=== PATIENT | female | born 1975 | race Native Hawaiian/Other Pacific Islander ===

== ENCOUNTER 2016-10-16 15:03 | Outpatient (CLI) | payer BC ==
--- NOTE | 2016-10-16 15:40 | Mammography Report ---
Screening mammogram: The patient had this exam on the above date . It was indicated to us that previous films should be available that would be helpful in providing optimal evaluation with regards to the current study. A final report will be issued, pending receipt of the prior study. CAD was utilized. BI-RADS CATEGORY: 0 = Needs additional imaging evaluation ACR BI-RADS MAMMOGRAPHIC CODES: 0 = Needs additional imaging evaluation; 1 = Negative; 2 = Benign; 3 = Probably benign; 4 = Suspicious; 5 = Malignant; 6 = Known biopsy-proven malignancy COMMENT: 1. Dense breast tissue, i.e., adenosis, fibrocystic changes, etc., may obscure an underlying neoplasm. 2. Approximately 10% of cancers are not detected with mammography. 3. A negative mammography report should not delay biopsy if a clinically suspicious mass is present.
== END 2016-10-16 15:04 | disposition home or self-care (01) ==
LOC: MAMMO 15:03
PROVIDERS: ATTEND Obstetrics & Gynecology
DX: Z12.31 Encounter for screening mammogram for malignant neoplasm of breast (principal)
CPT/HCPCS: 77067; G0202

== ENCOUNTER 2017-11-01 07:19 | Outpatient (CLI) | payer BC ==
--- NOTE | 2017-11-01 13:02 | Mammography Report ---
BILATERAL DIGITAL SCREENING MAMMOGRAM with CAD: 11/01/17 07:19:00 CLINICAL: Routine screening. COMPARISON:10/16/16 FINDINGS: The breasts are heterogeneously dense, which may obscure small masses. No mass, architectural distortion or suspicious calcifications. IMPRESSION: No mammographic evidence of malignancy. BI-RADS CATEGORY: 1 - - Negative RECOMMENDATION: Routine mammographic screening in one year. COMMENT: Patient follow-up letters are generated by our [employer] application.
== END 2017-11-01 07:20 | disposition home or self-care (01) ==
LOC: MAMMO 07:19
PROVIDERS: ATTEND Obstetrics & Gynecology
DX: Z12.31 Encounter for screening mammogram for malignant neoplasm of breast (principal)
CPT/HCPCS: 77067

== ENCOUNTER 2017-12-28 09:35 | Day surgery (SDC) | payer BC ==
[2017-12-23 10:02] LABS: Eosinophils # (Auto) 0.1 K/mm3 (0.0-0.4); Eosinophils % (Auto) 2.9 % (0.0-4.3); Hematocrit 28.3 % (30.3-42.9); Lymphocytes # (Auto) 1.4 K/mm3 (1.2-5.4); Lymphocytes % (Auto) 36.6 % (13.4-35.0); Mean Corpuscular HGB Conc 32 % (30-34); Mean Corpuscular Hemoglobin 23 pg (28-32); Mean Corpuscular Volume 72 fl (79-97); Monocytes # (Auto) 0.3 K/mm3 (0.0-0.8); Monocytes % (Auto) 6.9 % (0.0-7.3); Platelet Count 495 K/mm3 (140-440); Red Blood Count 3.94 M/mm3 (3.65-5.03); Red Cell Distribution Width 24.1 % (13.2-15.2)
--- NOTE | 2017-12-27 17:09 | History and Physical Report ---
History of Present Illness Date of examination: 12/22/17 Date of admission: 12/28/17 Chief complaint: irregular vaginal bleeding History of present illness: History of Present Illness: pt presents for pre-op for hysteroscopy.......................igarcia Pt with h/o menometrhhagia and dx of cervical polyp here for preop for hysteroscopic removal of the endometrial mass. All risk/benefits/alternatives were d/w pt and questions were addressed and answered. Cosnents have been signed and placed on the chart. 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 of genital herpes: no Partner hx. of genital herpes: no Hx of STD: None Active Medications (reviewed today): FERROUS SULFATE 325 (65 FE) MG ORAL TABLET (FERROUS SULFATE) 1 po qd Current Allergies (reviewed today): No known allergies Past Medical History: Reviewed history from 10/07/2015 and no changes required: Anemia Past Surgical History: Reviewed history from 10/07/2015 and no changes required: Negative Past Surgical History Family History Summary: Reviewed history and no changes required: 12/27/2017 Social History: Reviewed history from 10/26/2017 and no changes required: Patient is single Smoking History: Patient has never smoked. 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] Physical Exam Appearance: well developed, well nourished, no acute distress Other Exams Lungs: no rales, rhonchi, or wheezes Heart: S1, S2, no murmur, rub, or gallop Abdomen: soft, non-tender, no masses, bowel sounds normal Extremities: normal alignment, no joint enlargement, crepitus, masses or tenderness; normal tone and strength Genitourinary Exam Comments: deferrred until EUA Past History Past Medical History: other (anemia) Past Surgical History: no surgical history 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: abnormal PAP smear Family/Genetic History: other (see hpi) Social history: no significant social history, single Medications and Allergies Allergies Allergy/AdvReac Type Severity Reaction Status Date / Time No Known Allergies Allergy Verified 12/27/17 16:46 Home Medications Medication Instructions Recorded Confirmed Last Taken Type Ferrous Sulfate [Iron] 325 mg PO DAILY 12/22/17 12/22/17 Unknown History Active Meds: Active Medications Cefazolin Sodium (Ancef/Sterile Water 2 Gm/20 Ml) 2 gm in 20 mls @ 80 mls/hr IV PREOP NR; Protocol Stop: 12/28/17 23:00 Review of Systems All systems: negative - Vital Signs Vital signs: Vital Signs Temp Pulse Resp BP 97.6 F 72 16 110/60 12/23/17 09:40 12/23/17 09:40 12/23/17 09:40 12/23/17 09:40 Temp Pulse Resp BP Pulse Ox 97.6 F 72 16 110/60 12/23/17 09:40 12/23/17 09:40 12/23/17 09:40 12/23/17 09:40 - Physical Exam Breasts: Positive: deferred Cardiovascular: Normal S1 Lungs: Positive: Clear to auscultation, Normal air movement Abdomen: Positive: normal appearance, soft. Negative: distention, tenderness, guarding Genitourinary (Female): Positive: other (deferred until EUA) Results Result Diagrams: 12/23/17 09:45 All other labs normal. Assessment and Plan - Patient Problems (1) Menorrhagia with irregular cycle Status: Acute (2) Anemia Status: Acute Qualifiers: Iron deficiency anemia type: chronic blood loss (3) Endometrial mass Status: Acute Plan to address problem: -ADMIT AND PREPARE FOR HYSTEROSCOPY WITH MYOSURE FOR REMOVAL OF MASS -CONSENTS HAVE BEEN SIGNED AND PLACED ON THE CHART
[~2017-12-28 09:35] MED LIST: ANCEF/STERILE WATER 2 GM/20 ML 2 GM/20 ML SYRINGE IV NR; NACL 0.9% IR ONE
--- NOTE | 2017-12-28 10:54 | Anesthesia Consultation ---
Anesthesia Consult and Med Hx Date of service: 12/28/17 - Airway Anesthetic Teeth Evaluation: Good ROM Head & Neck: Adequate Mental/Hyoid Distance: Adequate Mallampati Class: Class III Intubation Access Assessment: Possibly Difficult - Pulmonary Exam CTA: Yes - Cardiac Exam Cardiac Exam: RRR - Pre-Operative Health Status ASA Pre-Surgery Classification: ASA1 Proposed Anesthetic Plan: General - Pulmonary Hx Smoking: No Hx Asthma: No COPD: No - Cardiovascular System Hx Hypertension: No Hx Heart Attack/AMI: No - Central Nervous System Hx Neuromuscular Disorder: No Hx Seizures: No CVA: No Hx Psychiatric Problems: No - Gastrointestinal Hx Gastroesophageal Reflux Disease: No - Endocrine Hx Renal Disease: No Hx Liver Disease: No Hx Insulin Dependent Diabetes: No Hx Thyroid Disease: No - Hematic Hx Anemia: Yes - Other Systems Hx Obesity: No - Additional Comments Anesthesia Medical History Comments: No prior anesthetics. No Fhx anesthetic complications.
--- NOTE | 2017-12-28 10:54 | Anesthesia Day of Surgery ---
Anesthesia Day of Surgery - Day of Surgery Patient Examined: Yes Patient H&P Reviewed: Yes Patient is NPO: Yes
[2017-12-28] MEDS ORDERED: LACTATED RINGERS 1,000 ML IV SCH (11:00)
[2017-12-28] MEDS ORDERED: VERSED IV NR (11:00)
[2017-12-28] MEDS ORDERED: REGLAN ONE (11:50)
[2017-12-28] MEDS ORDERED: ZOFRAN ONE (11:50)
[2017-12-28] MEDS ORDERED: SUBLIMAZE ONE (11:50)
[2017-12-28] MEDS ORDERED: XYLOCAINE MPF 2% ONE (11:50)
[2017-12-28] MEDS ORDERED: DIPRIVAN 10 MG/ML IV ONE (11:51)
[2017-12-28] MEDS ORDERED: SILVER NITRATE TP ONE (11:52)
--- NOTE | 2017-12-28 12:42 | Operative Report ---
Operative Report Operative Report: Date of procedure: 12/28/2017 Pre-operative diagnosis: Menorrhagia Anemia Endometrial mass Post-operative diagnosis: Same Procedure name(s): Hysteroscopy Myosure Surgeon: Dr. 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 endotracheal anesthesia EBL:l minimal Urine output: 410 mL of clear urine out via straight catheterization prior to the onset of procedure Fluids: 600 mL Fluid deficit: 250 mL Findings: Small endometrial polyp with thickened endometrial tissue noted on hysteroscopy. Both ostia visualized and noted to be normal. Otherwise normal intrauterine anatomy. Indications: Patient with history of menometrorrhagia resulting in anemia. Patient underwent saline infused sonogram that showed endometrial mass approximately 1-1/2-2 cm in largest diameter. Patient brought to the operating room for removal of mass. All risks benefits and alternatives were discussed with the patient. Consents were signed and placed on the chart. Procedure: Patient was taken to the operating room where she was placed under general anesthesia. She was placed in dorsal lithotomy position with legs in Marlo stirrups. She was then prepped and draped in sterile fashion. Red rubber catheter was placed at this time with complete emptying of the bladder. The anterior lip of the cervix was grasped with a tenaculum and the uterus was sounded to approximately 9 cm. As at this point that the cervix was dilated to allow the passage of a Myosure hysteroscope. The Myosure device was used to removed intrauterine mass and any thickened intra-uterine tissue. Uterine cavity was noted to have a smooth appearance. Hemostasis was noted to be excellent. Patient was taken to the recovery room awake and in stable condition. Patient was given Ancef prior to the onset of the procedure. All laps and needle counts were correct. Patient tolerated the procedure well.
--- NOTE | 2017-12-28 12:42 | Short Stay Summary ---
Short Stay Documentation Date of service: 12/28/17 - History H&P: dictated Social history: no significant social history, single - Allergies and Medications Current Medications: Allergies No Known Allergies Allergy (Verified 12/27/17 16:46) Home Medications Medication Instructions Recorded Confirmed Last Taken Type Ferrous Sulfate [Iron] 325 mg PO DAILY 12/22/17 12/22/17 Unknown History RX: Ibuprofen 800 mg PO Q6HR #30 tablet 12/28/17 Unknown Rx oxyCODONE /ACETAMINOPHEN [Percocet 1 tab PO Q4HR #30 tab 12/28/17 Unknown Rx 5/325] Active Medications Cefazolin Sodium (Ancef/Sterile Water 2 Gm/20 Ml) 2 gm in 20 mls @ 80 mls/hr IV PREOP NR; Protocol Stop: 12/28/17 23:00 Lactated Ringer's (Lactated Ringers) 1,000 mls @ 100 mls/hr IV DIRECT ELADIA Last Admin: 12/28/17 11:25 Dose: 100 mls/hr Midazolam HCl (Versed) 2 mg IV PREOP NR Stop: 12/28/17 23:59 Last Admin: 12/28/17 11:26 Dose: 2 mg - Physical exam Breasts: deferred - Brief post op/procedure progress note Date of procedure: 12/28/17 Pre-op diagnosis: endometrial mass Post-op diagnosis: same Procedure: Hysteroscopy Removal of intrauterine mass via Myosure device Anesthesia: GETA Findings: See operative report Surgeon: ARLENE NOLEN Estimated blood loss: minimal Pathology: list (intrauterine tissue) Specimen disposition: to lab Condition: stable - Hospital course Hospital course: Patient admitted for above-stated procedure. Patient underwent procedure that was not complicated. Patient will remain in the PACU and tissue met discharge criteria. Patient will be discharged home from PACU with follow-up in office in 1 week. - Disposition Condition at discharge: Good Disposition: DC-01 TO HOME OR SELFCARE - Discharge Diagnoses (1) Menorrhagia with irregular cycle Status: Acute (2) Anemia Status: Acute Qualifiers: Iron deficiency anemia type: chronic blood loss (3) Endometrial mass Status: Acute Short Stay Discharge Plan Weight Bearing Status: Weight Bear as Tolerated Diet: regular Follow up with: PRIMARY CARE, [Primary Care Provider] - 7 Days Prescriptions: Ibuprofen 800 mg PO Q6HR #30 tablet oxyCODONE /ACETAMINOPHEN [Percocet 5/325] 1 tab PO Q4HR #30 tab
[2017-12-28] MEDS ORDERED: DILAUDID IV PRN (13:05)
[2017-12-28] MEDS ORDERED: ZOFRAN IV PRN (13:05)
[2017-12-28 13:37] VITALS: BP 101/60
== END 2017-12-28 13:55 | disposition home or self-care (01) ==
LOC: OR 09:35
PROVIDERS: ATTEND Obstetrics & Gynecology
DX: N92.0 Excessive and frequent menstruation with regular cycle (principal); D50.0 Iron deficiency anemia secondary to blood loss (chronic); G43.909 Migraine, unspecified, not intractable, without status migrainosus; Z79.899 Other long term (current) drug therapy
CPT/HCPCS: 36415; 58558; 84703; 85025; 88305; A4217; C1782; J0690; J2250; J2405; J2704; J2765; J3010; J7120

== ENCOUNTER 2018-11-02 13:59 | Outpatient (CLI) | payer BC ==
--- NOTE | 2018-11-02 15:14 | Mammography Report ---
DIGITAL SCREENING MAMMOGRAM WITH CAD, 11/02/2018 INDICATION: Routine screening mammography. TECHNIQUE: Digital bilateral 2D mammography was obtained in the craniocaudal and mediolateral obliq ue projections. This examination was interpreted with the benefit of Computer-Aided Detection analysi s. COMPARISON: 11/01/2017, 10/16/2016 FINDINGS: Breast Density: The breasts are heterogeneously dense, which may obscure small masses. There is no evidence of dominant mass, suspicious calcifications or architectural distortion in eithe r breast. No interval change. IMPRESSION: No evidence of malignancy. BI-RADS Category 1: Negative. No mammographic evidence of malignancy. Recommend routine screening m ammography in one year. A "normal" or negative report should not discourage follow up or biopsy of a clinically significant f inding. A written summary of these findings will be mailed to the patient. The patient will be entered into a mammography reporting system which will generate a reminder letter for the patient's next appointmen t at the appropriate interval. The [employer] recommends yearly mammograms starting at age 40 and continuing as l priyanka as a woman is in good health. Breast MRI is recommended for women with an approximate 20-25% or greater lifetime risk of breast cancer, including women with a strong family history of breast or ova isidra cancer or who have been treated for Hodgkin's disease. Signer Name: Joselyn Avila MD Signed: 11/02/2018 3:10 PM Workstation Name: [id number]
== END 2018-11-02 14:00 | disposition home or self-care (01) ==
LOC: MAMMO 13:59
PROVIDERS: ATTEND Obstetrics & Gynecology
DX: Z12.31 Encounter for screening mammogram for malignant neoplasm of breast (principal)
CPT/HCPCS: 77067

== ENCOUNTER 2019-11-09 06:53 | Outpatient (CLI) | payer BC ==
--- NOTE | 2019-11-09 16:55 | Mammography Report ---
DIGITAL SCREENING MAMMOGRAM WITH CAD, 11/09/2019 INDICATION: Routine screening mammography. TECHNIQUE: Digital bilateral 2D mammography was obtained in the craniocaudal and mediolateral obliq ue projections. This examination was interpreted with the benefit of Computer-Aided Detection analysi s. COMPARISON: 11/02/2018, 11/01/2017 FINDINGS: Breast Density: The breasts are heterogeneously dense, which may obscure small masses. There is no evidence of dominant mass, suspicious calcifications or architectural distortion in eithe r breast. IMPRESSION: Follow up recommendation: Routine yearly BI-RADS Category 1: Negative. A "normal" or negative report should not discourage follow up or biopsy of a clinically significant f inding. A written summary of these findings will be mailed to the patient. The patient will be entered into a mammography reporting system which will generate a reminder letter for the patient's next appointmen t at the appropriate interval. The [employer] recommends yearly mammograms starting at age 40 and continuing as l priyanka as a woman is in good health. Breast MRI is recommended for women with an approximate 20-25% or greater lifetime risk of breast cancer, including women with a strong family history of breast or ova isidra cancer or who have been treated for Hodgkin's disease. Signer Name: Tom Munoz MD Signed: 11/09/2019 4:51 PM Workstation Name: [id number]
== END 2019-11-09 06:54 | disposition home or self-care (01) ==
LOC: MAMMO 06:53
PROVIDERS: ATTEND Obstetrics & Gynecology
DX: Z12.31 Encounter for screening mammogram for malignant neoplasm of breast (principal)
CPT/HCPCS: 77067

== ENCOUNTER 2020-11-11 07:35 | Outpatient (CLI) | payer SELFPAY | END 2020-11-11 07:36 | disposition home or self-care (01) | LOC: MAMMO 07:35 | PROVIDERS: ATTEND Obstetrics & Gynecology | DX: Z12.31 Encounter for screening mammogram for malignant neoplasm of breast (principal) | CPT/HCPCS: 77067 ==

== ENCOUNTER 2021-11-17 07:26 | Outpatient (CLI) | payer BC ==
--- NOTE | 2021-11-18 11:24 | Mammography Report ---
DIGITAL SCREENING MAMMOGRAM WITH CAD, 11/17/2021 CLINICAL INFORMATION / INDICATION: Routine screening mammography TECHNIQUE: Digital 2D mammography was obtained in the craniocaudal and mediolateral oblique projectio ns. This examination was interpreted with the benefit of Computer-Aided Detection analysis. COMPARISON: 11/11/2020 and prior FINDINGS: Breast Density: The breasts are heterogeneously dense, which may obscure small masses. No dominant mass, suspicious calcifications, or architectural distortion in either breast. IMPRESSION: No mammographic evidence of malignancy. Follow up recommendation: Routine yearly screening mammogram. BI-RADS Category 1: NEGATIVE A "normal" or negative report should not discourage follow up or biopsy of a clinically significant f inding. A written summary of these findings will be mailed to the patient. The patient will be entered into a mammography reporting system which will generate a reminder letter for the patient's next appointmen t at the appropriate interval. The [employer] recommends yearly mammograms starting at age 40 and continuing as l priyanka as a woman is in good health. Breast MRI is recommended for women with an approximate 20-25% or greater lifetime risk of breast cancer, including women with a strong family history of breast or ova isidra cancer or who have been treated for Hodgkin's disease. Signer Name: Aris Ames MD Signed: 11/18/2021 11:20 AM Workstation Name: [email or web address]
== END 2021-11-17 07:27 | disposition home or self-care (01) ==
LOC: MAMMO 07:26
PROVIDERS: ATTEND Obstetrics & Gynecology
DX: Z12.31 Encounter for screening mammogram for malignant neoplasm of breast (principal)
CPT/HCPCS: 77067